=== PATIENT | female | born 1960 | race Caucasian/White ===

== ENCOUNTER 2024-03-23 08:40 | Emergency (ER) | payer BC, SELFPAY ==
[2024-03-23 08:41] VITALS: BP 128/81
[2024-03-23 08:56] VITALS: BMI 25.0
--- NOTE | 2024-03-23 09:02 | ED.GENMED ---
History of Present Illness
General
Chief Complaint: Abdominal Symptoms
Source: patient
Time Seen by Provider: 03/23/24 08:49
Travel History
Have you had any contact with someone who has COVID-19?: No
Do you have any symptoms of coronavirus? Fever > 100 degrees, chills, cough, shortness of breath, sore throat, loss of taste or smell, muscle aches, or headache?: No
History of Present Illness
History of Present Illness:
63-year-old female with past medical history of diverticulosis/diverticulitis presenting to the emergency department for evaluation of left-sided lower abdominal pain for the last few days, attempted to see her primary care provider however has not
been there in 4 years so was unable to be seen, attempted to go to her GI physician yesterday however they did not have any appointments available. Patient admits to some loose stool, diminished p.o. intake and states the symptoms feel very similar
to previous diverticulitis flares. She denies any fevers, chills, rigors, nausea or vomiting or any other concerns presently. Patient did not take anything for prior to arrival.
Past History
Past History
ED Past Medical History: Psychiatric and Other (Diverticulosis/diverticulitis)
ED Past Surgical History: None
Social History
Tobacco: Non-smoker
Alcohol: Occasional
Drug: None
Personal:
Living: with family
Review of Systems
Review of Systems
All Other Systems: ROS reviewed and negative except as documented in HPI and ROS
Phy Exam
Physical Exam
Physical Exam:
GENERAL: Alert , in no apparent distress
EYE: clear conjunctiva b/l
HEAD: NCAT
ENT: o/p clr, mmm.
ABDOMEN: Soft, mild left lower quadrant tenderness to palpation, no r/g, no cvat
NEUROLOGICAL: Alert and oriented
SKIN: Warm and dry, skin intact.
MUSCULOSKELETAL: well perfused.
PSYCH: Normal and appropriate interaction.
Scores
Heart Failure Risk
Heart Failure Risk Score: Not Applicable
Heart Score for Chest Pain Patients
STEMI patient?: Not applicable
Withdrawal Assessment of Alcohol
Withdrawal Assessment Completed?: Not applicable
Course
Orders/Labs/Results
Orders:
Orders
03/23/24 08:59
IV Insert/Care/Rem.- Treatment PRN
03/23/24 09:02
CT Abd/pelvis W Iv Cont Urgent
Comment:
Reason For Exam: left sided abd pain, hx diverticulitis
03/23/24 09:04
Complete Blood Count/With Diff Urgent
Comprehensive Metabolic Panel Urgent
Lipase Urgent
Urinalysis Reflex To Culture Urgent
Date Specimen was Collected: 03/23/24
Time Specimen was Collected: 08:59
Urine Microscopic Reflex Cult Urgent
Abnormal Lab Results
03/23/24
09:04
Lymphocytes % 19.3 L %
(20.5-51.1)
Glucose 124 H mg/dl
(70-99)
Urine Ketones 1+ A
(Negative)
Leukocyte Esterase Rfl Trace A
(Negative)
Urine Bacteria (Reflex) Few A
(Negative)
03/23/24 09:04
03/23/24 09:04
Vital Signs
Initial and Last Documented VS:
Initial Vital Signs
Temp Pulse Resp BP Pulse Ox
97.9 F 97 22 128/81 96
03/23/24 08:41 03/23/24 08:41 03/23/24 08:41 03/23/24 08:41 03/23/24 08:41
Last Documented Vital Signs
Temp Pulse Resp BP Pulse Ox
97.9 F 97 22 128/81 96
03/23/24 08:41 03/23/24 08:41 03/23/24 08:41 03/23/24 08:41 03/23/24 08:41
MDM/Problems Addressed
Differential Diagnosis Includes:
Diverticulitis, diverticulosis, colitis, renal/ureteral colic, urinary tract infection
MDM/Problems Addressed:
63-year-old female presenting to the emergency department for evaluation of left lower quadrant abdominal pain over the last 3 days that feels similar to previous diverticulitis flares. Unable to be seen by her primary care provider and GI
physician. Pain is reproducible within the left lower quadrant. She is nontoxic in appearance, afebrile and declining anything for pain. Will check labs and CT imaging. Reassessment following.
Chronic conditions affecting care: Other (Diverticulosis/previous episodes of diverticulitis)
*Radiology
Radiology exam reviewed: radiology read reviewed
*Pulse Oximetry
Patient hypoxic: no
*Critical Care Note
Total Time (30-74mins, 75-104mins- exclusive of procedures): Not Applicable
Data Reviewed
Review of Other/Old Records Reveals: Labs and Radiology Studies
Source: patient
Patient Management
Escalation/DeEscalation of care consider admission/obs:
Patients CT scan shows uncomplicated acute diverticulitis. She is afebrile, pain controlled and no leukocytosis. Will treat with 10 days PO augmentin. Stable for d/c and outpatient follow up. Aware of return precautions
ED Attending Note
-
Portions of this chart may have been created with voice recognition software.� Occasional wrong word or��sound alike� substitutions may have occurred due to the inherent limitations of voice recognition software.
Discharge Plan
Departure
Patient Disposition: Home (Routine Discharge)
Date of Disposition: 03/23/24
Time of Disposition: 10:49
Patient with high blood pressure during this ER visit?: No
Discharge Problem:
Diverticulitis
Instructions: Diverticulitis (DC)
Prescriptions:
New
amoxicillin-pot clavulanate 875-125 mg tablet
1 tab PO BID 10 Days Qty: 20 0RF
No Action
L.acidoph, paracasei,B. lactis 1 EACH capsule
1 ea PO DAILY
lorazepam 0.5 MG tablet
0.5 mg PO HS
Referrals:
Bethany Espitia CRNP [Family Provider] -
Interventions
Interventions:
*Risk Screen - Suicide Last Done: 03/23/24 08:56
*General Assessment Last Done: 03/23/24 08:56
*Neglect/Abuse Screening Last Done: 03/23/24 08:56
*ED COVID-19 Vaccine History Last Done: 03/23/24 08:46
*Nursing Disposition Last Done: 03/23/24 11:03
HL-Ffvxsx-Rugaxeyidz Assessment Last Done: 03/23/24 08:56
Discharge Date and Time
Discharge Date/Time: 03/23/24 11:03
Print Language: HUNGARIAN
[2024-03-23 09:29] LABS: ALT (SGPT) 18 U/L (0-35); AST (SGOT) 24 U/L (14-36); Albumin 4.2 g/dl (3.5-5.0); Alkaline Phosphatase 92 U/L (38-126); Blood Urea Nitrogen 14 mg/dl (7-17); Calcium 9.6 mg/dl (8.4-10.2); Carbon Dioxide 27 mmol/L (22-30); Chloride 105 mmol/L (98-107); Estimated Creatinine Clearance 63 ml/min; Glucose 124 mg/dl (70-99); Lipase 79 U/L (23-300); Sodium 139 mmol/L (135-145); Total Bilirubin 1.2 mg/dl (0.2-1.3); Total Protein 7.1 g/dl (6.3-8.2); eGFR > 60.00
[2024-03-23 09:34] LABS: % Basophils 0.6 % (0-2); % Eosinophils 0.9 % (0-6); % Immature Granulocytes 0.4 % (0-0.5); % Lymphocytes 19.3 % (20.5-51.1); % Monocytes 9.3 % (1.7-9.3); % Neutrophils 69.5 % (42.2-75.2); Absolute Eosinophils 0.1 10^3/uL (0-0.7); Absolute Lymphocytes 1.3 10^3/uL (1.2-3.4); Absolute Monocytes 0.6 10^3/uL (0.1-0.6); Absolute Neutrophils 4.7 10^3/uL (1.4-6.5); Hematocrit 44.3 % (37.0-47.0); Hemoglobin 14.8 g/dL (12.0-16.0); Mean Corp Hgb Conc. 33.4 g/dL (33.0-37.0); Mean Corpuscular Hgb 30.3 pg (27.0-31.0); Mean Corpuscular Volume 90.6 fL (81.0-99.0); Mean Platelet Volume 9.9 fL (7.4-10.4); Nucleated Red Blood Cells % 0 %; Platelet Count 300 10^3/uL (130-400); Red Blood Cell Count 4.89 10^6/uL (4.20-5.40); Red Cell Dist. Width 12.3 % (11.5-14.5); White Blood Cell Count 6.8 10^3/uL (4.8-10.8)
[2024-03-23 10:30] LABS: Urine Albumin Trace (Neg - Trace); Urine Bilirubin Negative (Negative); Urine Character Clear (Clear); Urine Color Yellow; Urine Glucose Negative (Negative); Urine Ketone 1+ (Negative); Urine Leukocyte Trace (Negative); Urine Nitrite Negative (Negative); Urine Occult Blood Negative (Negative); Urine Specific Gravity 1.015 (<1.030); Urine Urobilinogen Negative (Neg - 1+)
[2024-03-23 10:43] LABS: Urine Bacteria Few (Negative); Urine Red Blood Cell 0-2 /HPF (0-2); Urine Squamous Cell 21-25 /LPF (Few)
== END 2024-03-23 11:03 | disposition home or self-care (01) ==
LOC: EMR 08:40
PROVIDERS: Physician Assistant Medical; EMERGENCY PHYSICIAN Emergency Medicine; FAMILY PHYSICIAN Nurse Practitioner Adult Health
DX: K57.32 Diverticulitis of large intestine without perforation or abscess without bleeding (principal)
CPT/HCPCS: 99285; 74177; 80053; 81003; 81015; 83690; 85025; Q9967

== ENCOUNTER → 2024-04-20 06:54 | Outpatient (REF) | payer BC, SELFPAY ==
[2024-04-20 08:11] LABS: % Basophils 0.6 % (0-2); % Immature Granulocytes 0.3 % (0-0.5); % Lymphocytes 21.4 % (20.5-51.1); % Monocytes 7.4 % (1.7-9.3); % Neutrophils 68.3 % (42.2-75.2); Absolute Eosinophils 0.1 10^3/uL (0-0.7); Absolute Lymphocytes 1.5 10^3/uL (1.2-3.4); Absolute Monocytes 0.5 10^3/uL (0.1-0.6); Absolute Neutrophils 4.8 10^3/uL (1.4-6.5); Hematocrit 42.6 % (37.0-47.0); Hemoglobin 14.4 g/dL (12.0-16.0); Mean Corp Hgb Conc. 33.8 g/dL (33.0-37.0); Mean Corpuscular Hgb 30.4 pg (27.0-31.0); Mean Corpuscular Volume 90.1 fL (81.0-99.0); Mean Platelet Volume 9.9 fL (7.4-10.4); Nucleated Red Blood Cells % 0 %; Platelet Count 292 10^3/uL (130-400); Red Blood Cell Count 4.73 10^6/uL (4.20-5.40); Red Cell Dist. Width 12.2 % (11.5-14.5)
[2024-04-20 09:25] LABS: ALT (SGPT) 16 U/L (0-35); AST (SGOT) 24 U/L (14-36); Albumin 4.4 g/dl (3.5-5.0); Alkaline Phosphatase 85 U/L (38-126); Blood Urea Nitrogen 18 mg/dl (7-17); Calcium 9.7 mg/dl (8.4-10.2); Carbon Dioxide 25 mmol/L (22-30); Chloride 107 mmol/L (98-107); Glucose 112 mg/dl (70-99); HDL Cholesterol 59 mg/dl; LDL Cholesterol, Calculated 180 mg/dl; Potassium 4.7 mmol/L (3.5-5.1); Sodium 141 mmol/L (135-145); Total Bilirubin 0.6 mg/dl (0.2-1.3); Total Cholesterol 268 mg/dl (50-199); Total Protein 6.9 g/dl (6.3-8.2); Triglyceride 147 mg/dl (10-149); Very Low Density Lipoprotein 29 mg/dl (0-30); eGFR > 60.00
[2024-04-20 09:43] LABS: TSH Reflex To Free T4 2.35 uIU/ml (0.47-4.68)
== END ==
LOC: REG 06:54
PROVIDERS: ATTENDING PHYSICIAN Nurse Practitioner Adult Health
DX: Z76.89 Persons encountering health services in other specified circumstances (principal); Z79.899 Other long term (current) drug therapy; Z13.29 Encounter for screening for other suspected endocrine disorder; Z00.00 Encounter for general adult medical examination without abnormal findings
CPT/HCPCS: 36415; 80053; 80061; 84443; 85025

== ENCOUNTER → 2024-08-04 07:20 | Outpatient (REF) | payer BC, SELFPAY ==
[2024-08-04 09:12] LABS: Blood Urea Nitrogen 17 mg/dl (7-17); Calcium 9.3 mg/dl (8.4-10.2); Carbon Dioxide 27 mmol/L (22-30); Chloride 105 mmol/L (98-107); Glucose 121 mg/dl (70-99); Potassium 4.5 mmol/L (3.5-5.1); Sodium 143 mmol/L (135-145); eGFR > 60.00
[2024-08-04 11:31] LABS: Glycohemoglobin (HgbA1c) 5.7 % (4.0-5.6)
== END ==
LOC: REG 07:20
PROVIDERS: ATTENDING PHYSICIAN Family Medicine
DX: K63.5 Polyp of colon (principal); R73.01 Impaired fasting glucose
CPT/HCPCS: 36415; 80048; 83036

== ENCOUNTER → 2024-12-20 09:46 | Outpatient (REF) | payer BC, SELFPAY | LOC: RAD 09:46 | PROVIDERS: ATTENDING PHYSICIAN Nurse Practitioner Adult Health | DX: M25.571 Pain in right ankle and joints of right foot (principal); R60.0 Localized edema; I83.90 Asymptomatic varicose veins of unspecified lower extremity | CPT/HCPCS: 93971 ==

== ENCOUNTER → 2025-03-20 17:22 | Outpatient (REF) | payer BC, SELFPAY | LOC: WDC 17:22 | PROVIDERS: ATTENDING PHYSICIAN Nurse Practitioner Adult Health; FAMILY PHYSICIAN Nurse Practitioner Adult Health | DX: Z12.31 Encounter for screening mammogram for malignant neoplasm of breast (principal); M81.0 Age-related osteoporosis without current pathological fracture | CPT/HCPCS: 77063; 77067; 77080 ==

== ENCOUNTER → 2025-04-25 06:46 | Outpatient (REF) | payer BC, SELFPAY ==
[2025-04-25 08:55] LABS: Blood Urea Nitrogen 14 mg/dl (7-17); Calcium 9.5 mg/dl (8.4-10.2); Carbon Dioxide 26 mmol/L (22-30); Chloride 110 mmol/L (98-107); Glucose 106 mg/dl (70-99); Potassium 4.4 mmol/L (3.5-5.1); Sodium 141 mmol/L (135-145); eGFR > 60.00
[2025-04-25 09:08] LABS: Glycohemoglobin (HgbA1c) 5.5 % (4.0-5.6)
== END ==
LOC: REG 06:46
PROVIDERS: ATTENDING PHYSICIAN Nurse Practitioner Adult Health
DX: K63.5 Polyp of colon (principal); R73.01 Impaired fasting glucose
CPT/HCPCS: 36415; 80048; 83036

== ENCOUNTER → 2025-05-11 07:03 | Outpatient (REF) | payer BC, SELFPAY ==
[2025-05-11 08:16] LABS: Hematocrit 41.9 % (37.0-47.0); Hemoglobin 14.3 g/dL (12.0-16.0); Mean Corp Hgb Conc. 34.1 g/dL (33.0-37.0); Mean Corpuscular Volume 92.1 fL (81.0-99.0); Nucleated Red Blood Cells % 0 %; Platelet Count 286 10^3/uL (130-400); Red Cell Dist. Width 11.9 % (11.5-14.5)
[2025-05-11 09:05] LABS: ALT (SGPT) 19 U/L (0-35); AST (SGOT) 22 U/L (14-36); Albumin 4.2 g/dl (3.5-5.0); Alkaline Phosphatase 84 U/L (38-126); Blood Urea Nitrogen 15 mg/dl (7-17); Calcium 9.2 mg/dl (8.4-10.2); Carbon Dioxide 27 mmol/L (22-30); Chloride 108 mmol/L (98-107); Glucose 115 mg/dl (70-99); HDL Cholesterol 58 mg/dl; LDL Cholesterol, Calculated 177 mg/dl; Potassium 4.4 mmol/L (3.5-5.1); Sodium 140 mmol/L (135-145); Total Protein 6.6 g/dl (6.3-8.2); Very Low Density Lipoprotein 20 mg/dl (0-30); eGFR > 60.00
== END ==
LOC: REG 07:03
PROVIDERS: ATTENDING PHYSICIAN Nurse Practitioner Adult Health
DX: Z00.00 Encounter for general adult medical examination without abnormal findings (principal); E78.2 Mixed hyperlipidemia; Z79.899 Other long term (current) drug therapy; Z13.29 Encounter for screening for other suspected endocrine disorder
CPT/HCPCS: 36415; 80053; 80061; 84443; 85025

== ENCOUNTER → 2025-06-14 06:42 | Outpatient (REF) | payer BC, SELFPAY ==
[2025-06-14 08:03] LABS: Hematocrit 40.4 % (37.0-47.0); Hemoglobin 13.7 g/dL (12.0-16.0); Mean Corp Hgb Conc. 33.9 g/dL (33.0-37.0); Mean Corpuscular Volume 89.8 fL (81.0-99.0); Platelet Count 205 10^3/uL (130-400); Red Cell Dist. Width 12.1 % (11.5-14.5)
[2025-06-14 08:35] LABS: ALT (SGPT) 43 U/L (0-35); AST (SGOT) 49 U/L (14-36); Albumin 4.1 g/dl (3.5-5.0); Alkaline Phosphatase 74 U/L (38-126); Blood Urea Nitrogen 12 mg/dl (7-17); Calcium 8.9 mg/dl (8.4-10.2); Carbon Dioxide 27 mmol/L (22-30); Chloride 106 mmol/L (98-107); Glucose 98 mg/dl (70-99); Nucleated Red Blood Cells % 0 %; Potassium 3.7 mmol/L (3.5-5.1); Sodium 140 mmol/L (135-145); Total Protein 6.6 g/dl (6.3-8.2); eGFR > 60.00
== END ==
LOC: REG 06:42
PROVIDERS: ATTENDING PHYSICIAN Nurse Practitioner Adult Health
DX: R19.7 Diarrhea, unspecified (principal)
CPT/HCPCS: 36415; 80053; 85025; 85652; 86618

== ENCOUNTER → 2025-06-17 08:43 | Outpatient (REF) | payer BC, SELFPAY | LOC: REG 08:43 | PROVIDERS: ATTENDING PHYSICIAN Nurse Practitioner Adult Health; FAMILY PHYSICIAN Nurse Practitioner Adult Health | DX: R19.7 Diarrhea, unspecified (principal) | CPT/HCPCS: 36415; 87045; 87046; 87328; 87329; 87427 ==

== ENCOUNTER → 2025-07-20 07:04 | Outpatient (REF) | payer BC, SELFPAY ==
[2025-07-20 08:06] LABS: Hematocrit 42.2 % (37.0-47.0); Hemoglobin 13.9 g/dL (12.0-16.0); Mean Corp Hgb Conc. 32.9 g/dL (33.0-37.0); Mean Corpuscular Volume 90.8 fL (81.0-99.0); Nucleated Red Blood Cells % 0 %; Platelet Count 270 10^3/uL (130-400); Red Cell Dist. Width 12.3 % (11.5-14.5)
[2025-07-20 08:41] LABS: ALT (SGPT) 20 U/L (0-35); AST (SGOT) 24 U/L (14-36); Albumin 4.1 g/dl (3.5-5.0); Alkaline Phosphatase 75 U/L (38-126); Blood Urea Nitrogen 16 mg/dl (7-17); Calcium 9.5 mg/dl (8.4-10.2); Carbon Dioxide 29 mmol/L (22-30); Chloride 108 mmol/L (98-107); Glucose 121 mg/dl (70-99); Potassium 4.5 mmol/L (3.5-5.1); Sodium 141 mmol/L (135-145); Total Protein 6.6 g/dl (6.3-8.2); eGFR > 60.00
== END ==
LOC: REG 07:04
PROVIDERS: ATTENDING PHYSICIAN Nurse Practitioner Adult Health; FAMILY PHYSICIAN Nurse Practitioner Adult Health
DX: R19.7 Diarrhea, unspecified (principal); R03.0 Elevated blood-pressure reading, without diagnosis of hypertension; A08.4 Viral intestinal infection, unspecified
CPT/HCPCS: 36415; 80053; 85025